=== PATIENT | female | born 1970 | race Two or more races ===

== ENCOUNTER 2017-05-30 17:49 | Emergency (ER) | payer MEDICAID ==
[~2017-05-30] VITALS: Ht 167.6 cm; Wt 70.3 kg
[2017-05-30] MEDS ORDERED: SIMVASTATIN20 MG ORAL (17:57)
[2017-05-30] MEDS ORDERED: VITAMIN D250000 UNI1 ORAL (17:57)
[2017-05-30] MEDS ORDERED: JANUVIA25 MG ORAL (17:57)
[2017-05-30] MEDS ORDERED: METFORMIN HCL500 M1 ORAL (17:57)
[2017-05-30] MEDS ORDERED: LORAZEPAM0.5 MG ORAL (17:57)
--- NOTE | 2017-05-30 17:58 | Emergency Room Report ---
History of Present Illness General Chief Complaint: Headache Source: Patient Present Illness HPI 46 yo female presents to ER complaining of BUENROSTRO intermittently for the past month. Patient denies vision changes or vision loss. Denies vomiting. Patient also complains of bilateral hand and feet numbness. Reports chronic ailment, reports has not received treatment or referral from primary care provider, reports instructed to report to ER for symptoms. Reports able to ambulate without difficulty. Denies hx of injury. Patient reports hx of DM. Reports taking medication for DM. Denies fever, chest pain, SOB, abdominal pain. Denies dysuria, hematuria. Allergies: Coded Allergies: No Known Allergies (Unverified , 05/30/17) Patient History Past Medical History: see triage record Reviewed Nursing Documentation: PMH: Agreed; PSxH: Agreed Nursing Documentation-PMH Past Medical History: No History, Except For Hx Diabetes: Yes Review of Systems All Other Systems: negative except mentioned in HPI Physical Exam Vital Signs Date Time Temp Pulse Resp B/P (MAP) Pulse Ox O2 Delivery O2 Flow Rate FiO2 05/30/17 17:52 98.3 87 20 111/77 99 Room Air 98.2 Sp02 EP Interpretation: reviewed, normal General Appearance: well appearing, no apparent distress, alert, GCS 15, non- toxic Head: normocephalic, atraumatic Eyes: bilateral eye normal inspection, bilateral eye PERRL, bilateral eye EOMI ENT: hearing grossly normal, normal pharynx, no angioedema, normal voice, uvula midline, moist mucus membranes Neck: full range of motion Respiratory: lungs clear, normal breath sounds, no rhonchi, no respiratory distress, no accessory muscle use, no wheezing, speaking full sentences Cardiovascular #2: 2+ radial (R), 2+ radial (L), 2+ dorsalis pedis (R), 2+ dorsalis pedis (L) Gastrointestinal: non tender, soft, no mass, non-distended, no guarding, no rebound Musculoskeletal: back normal, digits/nails normal, gait/station normal, normal range of motion, non-tender, no calf tenderness, other - NVI Neurologic: alert, oriented x3, responsive, basket turner III-XII nml as tested, motor strength/tone normal, sensory intact, cerebellar normal, normal gait, speech normal, other - negative Kernig, negative Brudzinski Psychiatric: mood/affect normal Skin: no rash Lymphatic: no adenopathy Medical Decision Making PA Attestation Dr. Rey is my supervising Physician whom patient management has been discussed with. Diagnostic Impression: Primary Impression: Headache Additional Impression: Numbness and tingling ER Course Pt presents to ED c/o headache. DDX considered but are not limited to migraine, cluster BUENROSTRO, tension BUENROSTRO, ICH, UTI. Patient reports not had BUENROSTRO like this in the past. Will order head CT due to age of onset of new HAs. VITAL SIGNS are WNL, patient is afebrile Order CT head, UA and pain medication. ER COURSE Excedrin Migraine provided for BUENROSTRO. UA negative for nitrites, leukocyte esterase, low suspicion for UTI. CT head shows no acute disease Numbness in hands and feet likely secondary to hx of diabetes, possible Peripheral neuropathy. Will provide Gabapentin for neuropathic pain. Instructed patient to take DM medications as instructed. Eat DM friendly diet. Followup with DM specialist. Followup with primary care provider to discuss referral and treatment at that time. Patient reports pain improved. Patient is AOx3, neurologically intact, nontoxic appearing, and ambulatory. DISCHARGE: -Rx provided Excedrin -Rx provided for Gabapentin At this time pt is stable for d/c to home. Patient is resting comfortably, in no acute distress, nontoxic appearing, talking, laughing, and smiling. Will provide with patient care instructions and any necessary prescriptions. Patient to take medication as instructed. Care plan and follow-up instructions provided. Patient questions asked and answered. Patient instructed to follow-up with primary care provider in the next 3 days and discuss further referral with PCP to neurologist. ER precautions given. Patient instructed to return to ER immediately for any new or worsening of symptoms including but not limited to fever, neck stiffness , vision changes, and neurological symptoms. Labs Test 05/30/17 18:00 Urine Color Pale yellow Urine Appearance Clear Urine pH 7 (4.5-8.0) Urine Specific [place] 1.005 (1.005-1.035) Urine Protein Negative (NEGATIVE) Urine Glucose (UA) Negative (NEGATIVE) Urine Ketones Negative (NEGATIVE) Urine Occult Blood Negative (NEGATIVE) Urine Nitrite Negative (NEGATIVE) Urine Bilirubin Negative (NEGATIVE) Urine Urobilinogen Normal MG/DL (0.0-1.0) Urine Leukocyte Esterase Negative (NEGATIVE) CT/MRI/US Diagnostic Results CT/MRI/US Diagnostic Results : Imaging Test Ordered: CT head Impression No evidence of acute intracranial hemorrhage, mass effect or cortical edema. MRI may be obtained for more sensitive evaluation as clinically indicated. Old fracture or postsurgical deformity of the left medial orbital wall with surgical fixation hardware along the left medial orbital wall as above. Correlate with surgical history recommended. Portions of the hardware not totally flush with medial orbital wall. Comparison with prior studies would be helpful to assess for interval change in positioning of hardware. Last Vital Signs Date Time Temp Pulse Resp B/P (MAP) Pulse Ox O2 Delivery O2 Flow Rate FiO2 05/30/17 17:52 98.3 87 20 111/77 99 Room Air 98.2 Disposition: HOME, SELF-CARE Condition: Stable Scripts Gabapentin* (GABAPENTIN*) 100 Mg Capsule 100 MG ORAL THREE TIMES A DAY, #21 CAP Prov: Mati Canales 05/30/17 Aspirin/Acetaminophen/Caffeine (EXCEDRIN MIGRAINE CAPLET) 1 Each Tablet 1 EACH PO TID for 7 Days, #21 TAB Prov: Mati Canales 05/30/17 Patient Instructions: General Headache Without Cause, Peripheral Neuropathy Additional Instructions: Followup with primary care provider in 3 -5 days. Followup with primary care provider for treatment and management of peripheral neuropathy. Take medications as directed. Patient questions asked and answered. ER precautions given, patient instructed to return to ER immediately for any new or worsening of symptoms. Mati Canales May 30, 2017 17:58
[2017-05-30 18:12] LABS: APPEARANCE,URINE CLEAR; BILIRUBIN, URINE NEGATIVE (NEGATIVE); COLOR,URINE PALE YELLOW; GLUCOSE, URINE (UA) NEGATIVE (NEGATIVE); KETONES,URINE NEGATIVE (NEGATIVE); LEUKOCYTE ESTERASE ,URINE NEGATIVE (NEGATIVE); NITRITE,URINE NEGATIVE (NEGATIVE); PH,URINE 7 (4.5-8.0); PROTEIN,URINE NEGATIVE (NEGATIVE); UROBILINOGEN,URINE NORMAL MG/DL (0.0-1.0)
[2017-05-30] MEDS ORDERED: Excedrin Migraine tab ORAL ONE (18:15)
[2017-05-30] MEDS ORDERED: EXCEDRIN MIGRA1 EAC1 PO (18:15)
--- NOTE | 2017-05-30 18:51 | Diagnostic Imaging Report ---
Indication: Pain Technique: Continuous helical CT scanning of the head was performed utilizing automated exposure control without intravenous contrast material. Axial and coronal reconstructions were obtained. Comparison: None CT dose: Total DLP 1358.49 mGycm; CTDI vol 70.38 mGy Findings: There is no acute intracranial hemorrhage, mass effect or cortical edema. The ventricles, cisterns and sulci are normal for age.Visualized mastoid air cells and paranasal sinuses are unremarkable. There is no evidence of acute fracture. There is chronic fracture or postoperative deformity of the left medial orbital wall. Surgical material is noted in the region of the left medial orbital wall. Portions of this surgical material seem to be within the intraconal fat of the left orbit, not flush with the medial orbital wall. Correlation with surgical history recommended. IMPRESSION: No evidence of acute intracranial hemorrhage, mass effect or cortical edema. MRI may be obtained for more sensitive evaluation as clinically indicated. Old fracture or postsurgical deformity of the left medial orbital wall with surgical fixation hardware along the left medial orbital wall as above. Correlate with surgical history recommended. Portions of the hardware not totally flush with medial orbital wall. Comparison with prior studies would be helpful to assess for interval change in positioning of hardware. The CT scanner at [facility] is accredited by the [employer] and the scans are performed using protocols designed to limit radiation exposure to as low as reasonably achievable to attain images of sufficient resolution adequate for diagnostic evaluation.
[2017-05-30 18:55] VITALS: BP 111/77
[2017-05-30] MEDS ORDERED: GABAPENTIN100 MG ORAL (19:02)
[2017-05-30 19:15] VITALS: BP 111/77
== END 2017-05-30 19:15 | disposition home or self-care (01) ==
LOC: EMR 18:20
DX: R51 Headache (principal); R20.0 Anesthesia of skin; E11.9 Type 2 diabetes mellitus without complications
CPT/HCPCS: 70450; 81003; 99284

== ENCOUNTER 2017-08-08 06:35 | Emergency (ER) | payer MEDICAID ==
[~2017-08-08] VITALS: Ht 134.6 cm; Wt 71.2 kg
[~2017-08-08 06:35] MED LIST: EXCEDRIN MIGRA1 EAC1 PO; GABAPENTIN100 MG ORAL; JANUVIA25 MG ORAL; LORAZEPAM0.5 MG ORAL; METFORMIN HCL500 M1 ORAL; SIMVASTATIN20 MG ORAL; VITAMIN D250000 UNI1 ORAL
[2017-08-08] MEDS ORDERED: DOCUSATE SODIU100 MG ORAL (07:04)
[2017-08-08 07:12] VITALS: BP 108/72
[2017-08-08] MEDS ORDERED: Sodium Chloride 500ML 500 ML IV ONE (07:20)
[2017-08-08 07:55] LABS: HEMATOCRIT 43.5 % (37.0-47.0); HEMOGLOBIN 14.7 G/DL (12.0-16.0); MEAN CORPUSCULAR VOLUME 91 FL (80-99); PLATELET COUNT 270 K/UL (150-450); RED BLOOD COUNT 4.79 M/UL (4.20-5.40); RED CELL DISTRIBUTION WIDTH 11.6 % (11.6-14.8); WHITE BLOOD COUNT 16.9 K/UL (4.8-10.8)
[2017-08-08 08:10] LABS: APPEARANCE,URINE SLIGHTLY CLOUDY; BILIRUBIN, URINE NEGATIVE (NEGATIVE); COLOR,URINE PALE YELLOW; GLUCOSE, URINE (UA) 4+ (NEGATIVE); KETONES,URINE NEGATIVE (NEGATIVE); LEUKOCYTE ESTERASE ,URINE NEGATIVE (NEGATIVE); NITRITE,URINE NEGATIVE (NEGATIVE); PH,URINE 6 (4.5-8.0); PROTEIN,URINE NEGATIVE (NEGATIVE); UROBILINOGEN,URINE NORMAL MG/DL (0.0-1.0)
[2017-08-08 08:12] LABS: ANION GAP 12 mmol/L (5-15); BLOOD UREA NITROGEN 10 mg/dL (7-18); CALCIUM 8.9 MG/DL (8.5-10.1); CARBON DIOXIDE 21 MMOL/L (21-32); CHLORIDE 100 MMOL/L (98-107); CREATININE 0.7 MG/DL (0.55-1.30); POTASSIUM 4.3 MMOL/L (3.5-5.1); SODIUM 133 MMOL/L (136-145)
[2017-08-08 08:17] LABS: ALANINE AMINOTRANSFERASE 18 U/L (12-78); ALBUMIN 3.8 G/DL (3.4-5.0); ALBUMIN/GLOBULIN RATIO 0.8 (1.0-2.7); ALKALINE PHOSPHATASE 150 U/L (46-116); ASPARTATE AMINO TRANSFERASE 24 U/L (15-37); BILIRUBIN,TOTAL 0.6 MG/DL (0.2-1.0)
[2017-08-08] MEDS ORDERED: Isovue-300 100ml vial INJ PRN (08:45)
--- NOTE | 2017-08-08 09:34 | Diagnostic Imaging Report ---
Clinical Indication: Abdominal pain Technique: No oral contrast utilized, per emergency room physician request IV administration nonionic contrast. Venous phase spiral acquisition obtained through the abdomen and pelvis. Multiplanar reconstructions were generated. Total dose length product 828.87 mGycm. CTDIvol(s) 15.03 mGy. Dose reduction achieved using automated exposure control Comparison: none Findings: Lack of enteric contrast limits assessment of the GI tract. The appendix is normal. The ascending colon is fluid-filled, and there is equivocal minimal wall thickening. The remainder of the colon is unremarkable. There is suggestion of wall thickening of the terminal ileum. There is a round rim-enhancing area of fluid between the terminal ileum and the right ovary. Most likely represents a partially collapsed follicle but could represent a terminal ileal diverticulum. No small bowel distention. No free or loculated intraperitoneal air or fluid is evident. There is a tiny fat-containing umbilical hernia. The included lung bases demonstrate some atelectasis in the left lingula. The bones are unremarkable. Liver, gallbladder, bile ducts, pancreas, spleen, adrenals, kidneys are all unremarkable. No retroperitoneal or mesenteric mass or adenopathy. The uterus is enlarged, demonstrates heterogeneous attenuation. Endoluminal tubal ligation devices are noted. The bladder is somewhat distended. No pelvic mass or adenopathy demonstrated. Impression: Limited assessment of the GI tract due to lack of enteric contrast administration. Suggestion of wall thickening of the distal and terminal ileum, more questionable wall thickening of the ascending colon as well as fluid within the ascending colon. Findings may represent enteritis/colitis. Correlate with clinical findings No other acute abnormality Round rim-enhancing area of fluid between the right ovary and the terminal ileum, most likely a partially collapsed ovarian follicle but could represent an ileal diverticulum. Enlarged uterus without discrete masses, could represent a diffuse fibroid uterus. Evidence of prior endoluminal fallopian tubal occlusion Distended bladder Other findings as noted, including minimal lingular atelectasis, tiny fat-containing umbilical hernia The CT scanner at [facility] is accredited by the [employer] and the scans are performed using protocols designed to limit radiation exposure to as low as reasonably achievable to attain images of sufficient resolution adequate for diagnostic evaluation.
[2017-08-08 09:47] VITALS: BP 110/74
[2017-08-08] MEDS ORDERED: RANITIDINE HCL150 MG ORAL (09:48)
[2017-08-08] MEDS ORDERED: COLACE100 MG ORAL (09:48)
[2017-08-08] MEDS ORDERED: DICYCLOMINE HCL10 MG PO (09:48)
[2017-08-08] MEDS ORDERED: CIPROFLOXACIN500 M2 ORAL (09:48)
--- NOTE | 2017-08-08 10:13 | Emergency Room Report ---
History of Present Illness General Chief Complaint: Abdominal Pain Source: Patient Present Illness HPI 46-year-old female presents ED complaining of abdominal pain. Started around 1 AM. Sudden onset. Burning, epigastric, 8 out of 10. Radiating to lower abdomen. Denies fevers or chills. Denies nausea or vomiting. Denies diarrhea. Denies chest pain or shortness of breath. No other aggravating relieving factors. Denies any other associated symptoms Allergies: Coded Allergies: No Known Allergies (Unverified , 05/30/17) Patient History Past Medical History: COPD Past Surgical History: none Pertinent Family History: none Social History: Denies: smoking, alcohol use, drug use Last Menstrual Period: 07/25/17 Now: No Immunizations: UTD Reviewed Nursing Documentation: PMH: Agreed; PSxH: Agreed Nursing Documentation-PMH Past Medical History: No History, Except For Hx Cardiac Problems: No - High Cholesterol Hx Diabetes: Yes Review of Systems All Other Systems: negative except mentioned in HPI Physical Exam Vital Signs Date Time Temp Pulse Resp B/P (MAP) Pulse Ox O2 Delivery O2 Flow Rate FiO2 08/08/17 06:58 98.5 108 16 108/72 97 Room Air 98.4 Sp02 EP Interpretation: reviewed, normal General Appearance: no apparent distress, alert, GCS 15, non-toxic Head: normocephalic, atraumatic Eyes: bilateral eye normal inspection, bilateral eye PERRL ENT: hearing grossly normal, normal pharynx, no angioedema, normal voice Neck: full range of motion, supple/symm/no masses Respiratory: chest non-tender, lungs clear, normal breath sounds, speaking full sentences Cardiovascular #1: regular rate, rhythm, no edema Cardiovascular #2: 2+ carotid (R), 2+ carotid (L), 2+ radial (R), 2+ radial (L) , 2+ dorsalis pedis (R), 2+ dorsalis pedis (L) Gastrointestinal: normal bowel sounds, soft, non-distended, no guarding, no rebound, tenderness - epigastric, lower abdomen Rectal: deferred Genitourinary: normal inspection, no CVA tenderness Musculoskeletal: back normal, gait/station normal, normal range of motion, non- tender Neurologic: alert, oriented x3, responsive, motor strength/tone normal, sensory intact, speech normal Psychiatric: judgement/insight normal, memory normal, mood/affect normal, no suicidal/homicidal ideation Reflexes: 3+ bicep (R), 3+ bicep (L), 3+ tricep (R), 3+ tricep (L), 3+ knee (R) , 3+ knee (L) Skin: normal color, no rash, warm/dry, well hydrated Lymphatic: no adenopathy Medical Decision Making Diagnostic Impression: Primary Impression: Colitis ER Course Hospital Course 46-year-old F presents to ED with abdominal pain Differential diagnosis includes-appendicitis, cholecystitis, small bowel obstruction, gastritis, Clinical course Patient placed on stretcher. After initial history and physical I ordered labs , IV fluids, pain medications and CT scan Labs - noted leukocytosis, electrolytes ok, LFTs normal, UA negative CT scan shows no e/o appendicitis. evidence of colitis in terminal ileum/ ascending colon Discussed findings with patient. We'll discharge on antibiotics. Close follow- up with PMD I feel this is a highly complex case requiring extensive working including EKG/ Rhythm strip, Xray/CT/US, Blood/urine lab work, repeat exams while in ED, and administration of strong opiates/narcotics for pain control, admission to hospital or close patient follow up. Diagnosis - colitis Stable and discharged to home with Rx Cipro, Bentyl, Colace, Zantac. Followup with PMD. Return to ED if symptoms recur or worsen Labs Test 08/08/17 07:20 White Blood Count 16.9 K/UL (4.8-10.8) Red Blood Count 4.79 M/UL (4.20-5.40) Hemoglobin 14.7 G/DL (12.0-16.0) Hematocrit 43.5 % (37.0-47.0) Mean Corpuscular Volume 91 FL (80-99) Mean Corpuscular Hemoglobin 30.7 PG (27.0-31.0) Mean Corpuscular Hemoglobin Concent 33.7 G/DL (32.0-36.0) Red Cell Distribution Width 11.6 % (11.6-14.8) Platelet Count 270 K/UL (150-450) Mean Platelet Volume 8.2 FL (6.5-10.1) Neutrophils (%) (Auto) % (45.0-75.0) Lymphocytes (%) (Auto) % (20.0-45.0) Monocytes (%) (Auto) % (1.0-10.0) Eosinophils (%) (Auto) % (0.0-3.0) Basophils (%) (Auto) % (0.0-2.0) Differential Total Cells Counted 100 Neutrophils % (Manual) 85 % (45-75) Lymphocytes % (Manual) 9 % (20-45) Monocytes % (Manual) 5 % (1-10) Eosinophils % (Manual) 0 % (0-3) Basophils % (Manual) 0 % (0-2) Band Neutrophils 1 % (0-8) Platelet Estimate Adequate Platelet Morphology Normal Red Blood Cell Morphology Normal Urine Color Pale yellow Urine Appearance Slightly cloudy Urine pH 6 (4.5-8.0) Urine Specific [place] 1.010 (1.005-1.035) Urine Protein Negative (NEGATIVE) Urine Glucose (UA) 4+ (NEGATIVE) Urine Ketones Negative (NEGATIVE) Urine Occult Blood 1+ (NEGATIVE) Urine Nitrite Negative (NEGATIVE) Urine Bilirubin Negative (NEGATIVE) Urine Urobilinogen Normal MG/DL (0.0-1.0) Urine Leukocyte Esterase Negative (NEGATIVE) Urine RBC 2-4 /HPF (0 - 2) Urine WBC 2-4 /HPF (0 - 2) Urine Squamous Epithelial Cells Moderate /LPF (NONE/OCC) Urine Bacteria Few /HPF (NONE) Urine HCG, Qualitative Negative (NEGATIVE) Sodium Level 133 MMOL/L (136-145) Potassium Level 4.3 MMOL/L (3.5-5.1) Chloride Level 100 MMOL/L (98-107) Carbon Dioxide Level 21 MMOL/L (21-32) Anion Gap 12 mmol/L (5-15) Blood Urea Nitrogen 10 mg/dL (7-18) Creatinine 0.7 MG/DL (0.55-1.30) Estimat Glomerular Filtration Rate > 60 mL/min (>60) Glucose Level 248 MG/DL (74-106) Calcium Level 8.9 MG/DL (8.5-10.1) Total Bilirubin 0.6 MG/DL (0.2-1.0) Aspartate Amino Transf (AST/SGOT) 24 U/L (15-37) Alanine Aminotransferase (ALT/SGPT) 18 U/L (12-78) Alkaline Phosphatase 150 U/L (46-116) Total Protein 8.3 G/DL (6.4-8.2) Albumin 3.8 G/DL (3.4-5.0) Globulin 4.5 g/dL Albumin/Globulin Ratio 0.8 (1.0-2.7) Lipase 114 U/L (73-393) CT/MRI/US Diagnostic Results CT/MRI/US Diagnostic Results : Imaging Test Ordered: CT A/P Impression thickening of distal/terminal ileum. ascending colon. colitis vs enteritis Last Vital Signs Date Time Temp Pulse Resp B/P (MAP) Pulse Ox O2 Delivery O2 Flow Rate FiO2 08/08/17 09:47 98.0 96 16 110/74 97 Room Air 98.4 Status: improved Disposition: HOME, SELF-CARE Condition: Stable Scripts Docusate Sodium* (COLACE*) 100 Mg Capsule 100 MG ORAL THREE TIMES A DAY, #30 CAP Prov: Lucius Rey MD 08/08/17 Ranitidine Hcl* (ZANTAC*) 150 Mg Tablet 150 MG ORAL TWICE A DAY, #30 TAB Prov: Lucius Rey MD 08/08/17 Dicyclomine Hcl* (DICYCLOMINE HCL*) 10 Mg Capsule 10 MG PO QID, #20 CAP Prov: Lucius Rey MD 08/08/17 Ciprofloxacin Hcl* (CIPROFLOXACIN HCL*) 500 Mg Tablet 500 MG ORAL Q12H, #14 TAB 0 Refills Prov: Lucius Rey MD 08/08/17 Patient Instructions: Colitis Lucius Rey MD Aug 08, 2017 10:12
== END 2017-08-08 10:03 | disposition home or self-care (01) ==
LOC: EMR 07:30
DX: K52.9 Noninfective gastroenteritis and colitis, unspecified (principal); E11.9 Type 2 diabetes mellitus without complications; J44.9 Chronic obstructive pulmonary disease, unspecified; K42.9 Umbilical hernia without obstruction or gangrene
CPT/HCPCS: 36415; 74177; 80053; 81003; 81025; 83690; 85007; 85025; 96374; 96375; 99284; J2405; J7040; Q9967; S0028; 96360

== ENCOUNTER 2017-11-18 07:55 | Emergency (ER) | payer MEDICAID ==
[~2017-11-18] VITALS: Ht 144.8 cm; Wt 68.0 kg
[~2017-11-18 07:55] MED LIST changes: +CIPROFLOXACIN500 M2 ORAL; +COLACE100 MG ORAL; +DICYCLOMINE HCL10 MG PO; +DOCUSATE SODIU100 MG ORAL; +RANITIDINE HCL150 MG ORAL
[2017-11-18] MEDS ORDERED: METRONIDAZOLE500 MG ORAL (08:04)
[2017-11-18 08:08] VITALS: BP 116/70
--- NOTE | 2017-11-18 08:24 | Emergency Room Report ---
History of Present Illness General Chief Complaint: Flu Like Symptoms Source: Patient Present Illness HPI 47-year-old female history of diabetes presents with cough productive of yellowish sputum, bilateral ear pain, sore throat for the past 5 days. She reports she recently was diagnosed with a pelvic and is taking an antibiotic, Flagyl, for that. She reports no pelvic pain, no abnormal vaginal discharge, no dysuria. She denies any chest pain, abdominal pain, fever, vomiting, any other symptoms at all. She has been trying the antibiotic as well as Advil with only partial relief. Allergies: Coded Allergies: No Known Allergies (Unverified , 05/30/17) Patient History Past Medical History: see triage record Last Menstrual Period: 11/08/2017 Reviewed Nursing Documentation: PMH: Agreed; PSxH: Agreed Nursing Documentation-PMH Past Medical History: No History, Except For Hx Diabetes: Yes Review of Systems All Other Systems: negative except mentioned in HPI Physical Exam Vital Signs Date Time Temp Pulse Resp B/P (MAP) Pulse Ox O2 Delivery O2 Flow Rate FiO2 11/18/17 07:58 98.4 95 14 115/75 96 Room Air 98.4 Sp02 EP Interpretation: reviewed, normal General Appearance: no apparent distress, alert, non-toxic Head: normocephalic Eyes: bilateral eye normal inspection, bilateral eye PERRL, bilateral eye EOMI ENT: normal ENT inspection, hearing grossly normal, normal pharynx, no angioedema, normal voice, moist mucus membranes Neck: normal inspection, full range of motion, supple, supple/symm/no masses Respiratory: chest non-tender, lungs clear, normal breath sounds, chest symmetrical, palpation of chest normal Cardiovascular #1: normal peripheral pulses, regular rate, rhythm Cardiovascular #2: 2+ radial (R), 2+ radial (L) Gastrointestinal: normal inspection, non tender, soft, no mass, no guarding, no rebound Rectal: deferred Genitourinary: normal inspection, no CVA tenderness Musculoskeletal: back normal, gait/station normal, normal range of motion, non- tender, no calf tenderness Neurologic: alert, responsive, want ad supervisor III-XII nml as tested, motor strength/tone normal, sensory intact, speech normal Psychiatric: judgement/insight normal, memory normal, mood/affect normal Skin: normal color, no rash, warm/dry, normal turgor Lymphatic: no adenopathy Medical Decision Making Diagnostic Impression: Primary Impression: Influenza-like symptoms ER Course Patient very well-appearing, has rhinorrhea and upper respiratory infectious symptoms, normal posterior oropharyngeal examination, as well as normal ear examination, chest x-ray unremarkable, will discharge with reassurance. We'll give prescriptions for intranasal steroids and Robitussin. Chest X-Ray Diagnostic Results Chest X-Ray Diagnostic Results : Chest X-Ray Ordered: Yes # of Views/Limited/Complete: 2 View Indication: Other - Cough EP Interpretation: Yes Interpretation: no consolidation, no effusion, no pneumothorax, no acute cardiopulmonary disease Impression: No acute disease Electronically Signed by: Byron Solares MD Last Vital Signs Date Time Temp Pulse Resp B/P (MAP) Pulse Ox O2 Delivery O2 Flow Rate FiO2 11/18/17 08:08 98.5 91 14 116/70 97 Room Air 98.5 Disposition: HOME, SELF-CARE Condition: Stable Scripts Guaifenesin/Dextromethorphan (Robitussin [id number] Dm) 1 Each Capsule 1 EACH PO BID for 7 Days, #14 CAP Prov: BYRON SOLARES M.D 11/18/17 Mometasone Furoate (NASONEX) 17 [address] [place].pump 2 SPRAYS NASAL DAILY for 7 Days, GM 0 Refills Prov: BYRON SOLARES M.D 11/18/17 BYRON SOLARES M.D Nov 18, 2017 08:23
[2017-11-18] MEDS ORDERED: NASONEX17 GM NASAL (08:28)
[2017-11-18] MEDS ORDERED: ROBITUSSIN COU1 EACH PO (08:29)
[2017-11-18 09:02] VITALS: BP 116/70
--- NOTE | 2017-11-18 10:23 | Diagnostic Imaging Report ---
Indication: Cough Comparison: None 2 views of the chest obtained. Findings: Cardiomediastinal silhouette and pulmonary vascularity are within normal limits for age. The diaphragmatic contour is smooth and costophrenic angles are sharp. No pleural effusions are identified. The bones are unremarkable. Impression: No acute disease
== END 2017-11-18 09:02 | disposition home or self-care (01) ==
LOC: EMR 08:22
DX: J11.1 Influenza due to unidentified influenza virus with other respiratory manifestations (principal); E11.9 Type 2 diabetes mellitus without complications
CPT/HCPCS: 71046; 99283

== ENCOUNTER 2018-01-15 12:33 | Emergency (ER) | payer MEDICAID ==
[~2018-01-15] VITALS: Ht 152.4 cm; Wt 64.4 kg
[~2018-01-15 12:33] MED LIST changes: +METRONIDAZOLE500 MG ORAL; +NASONEX17 GM NASAL; +ROBITUSSIN COU1 EACH PO
[2018-01-15 12:45] VITALS: BP 115/76
[2018-01-15] MEDS ORDERED: MAGNESIUM CITR296 M1 PO (13:26)
[2018-01-15] MEDS ORDERED: TYLENOL EXTRA500 MG ORAL (13:26)
--- NOTE | 2018-01-15 13:27 | Emergency Room Report ---
History of Present Illness General Chief Complaint: Constipation Source: Patient, Medical Record Present Illness HPI 47-year-old female patient presents the ER complaining constipation for the past 5 days. Reports a small amount of "white poop comes out" go to the bathroom. Denies diarrhea. Reports mild epigastric discomfort during this time. Denies fever, chest pain, shortness of breath. Reports history of diabetes. Reports when she strains to go to the bathroom she feels her heart beat faster. Denies history of heart disease. Allergies: Coded Allergies: No Known Allergies (Unverified , 01/15/18) Patient History Past Medical History: see triage record Reviewed Nursing Documentation: PMH: Agreed; PSxH: Agreed Nursing Documentation-PMH Hx Diabetes: Yes Review of Systems All Other Systems: negative except mentioned in HPI Physical Exam Vital Signs Date Time Temp Pulse Resp B/P (MAP) Pulse Ox O2 Delivery O2 Flow Rate FiO2 01/15/18 12:45 98.4 77 17 115/76 96 Room Air Sp02 EP Interpretation: reviewed, normal General Appearance: well appearing, no apparent distress, alert, GCS 15, non- toxic Head: normocephalic, atraumatic Eyes: bilateral eye normal inspection, bilateral eye PERRL ENT: hearing grossly normal, normal pharynx, no angioedema, normal voice, uvula midline, moist mucus membranes Neck: full range of motion Respiratory: lungs clear, normal breath sounds, no rhonchi, no respiratory distress, no accessory muscle use, no wheezing, speaking full sentences Cardiovascular #1: regular rate, rhythm, no edema Gastrointestinal: normal bowel sounds, non tender, soft, no mass, non-distended , no guarding, no pulsatile mass, no rebound, other - Negative Rovsing, negative obturator, negative Lazaro Genitourinary: no CVA tenderness Musculoskeletal: back normal, digits/nails normal, gait/station normal, normal range of motion, non-tender Neurologic: alert, oriented x3, responsive, motor strength/tone normal, sensory intact Skin: no rash Medical Decision Making PA Attestation Dr. Torres is my supervising Physician whom patient management has been discussed with. Diagnostic Impression: Primary Impression: Constipation ER Course Pt presents to ED c/o generalized abdominal pain. DDX considered but are not limited to cystitis, pyelonephritis, constipation, SBO. Low suspicion for appendicitis, no TTP at McBurney's point, negative Rovsing sign. VITAL SIGNS are WNL, patient is afebrile. ER COURSE Physical exam benign. Abdominal tenderness to palpation, negative Rovsing, negative Lazaro, does not require imaging of the abdomen at this time. She is resting comfortably, not writhing in pain, nontoxic-appearing, no abdominal tenderness palpation, no diarrhea, low suspicion for SBO. Drink plenty of fluids. High Fiber diet. ER precautions given. Return to the ER immediately if pain symptoms worsen. DISCHARGE: -Rx provided for Mg citrate Will provide with patient care instructions and any necessary prescriptions. Patient understands and agrees to treatment plan. Patient encouraged to drink plenty of fluids. Patient to take medication as instructed. Care plan and follow-up instructions provided. Patient questions asked and answered. Patient instructed to follow-up with test analyst in 3 - 5 days. ER precautions given. Patient instructed to return to ER immediately for any new or worsening of symptoms. Including but not limited to fever, worsening pain , intractable vomiting. - Please note that this Emergency Department Report was dictated using [employer] grader technology software, occasionally this can lead to erroneous entry secondary to interpretation by the dictation equipment. Last Vital Signs Date Time Temp Pulse Resp B/P (MAP) Pulse Ox O2 Delivery O2 Flow Rate FiO2 01/15/18 12:45 98.4 77 17 115/76 96 Room Air Disposition: HOME, SELF-CARE Condition: Stable Scripts Acetaminophen* (TYLENOL EXTRA STRENGTH*) 500 Mg Tablet 500 MG ORAL Q8H PRN for Prn Headache/Temp > 101, #30 TAB 0 Refills Prov: Mati Canales 01/15/18 Magnesium Citrate (MAGNESIUM CITRATE) 296 Ml Solution 296 ML PO DAILY, #296 ML Prov: Mati Canales 01/15/18 Patient Instructions: Constipation, Adult Additional Instructions: Followup with primary care provider in 3 -5 days. Drink plenty of fluids. High Fiber diet. Take medications as directed. Patient questions asked and answered. ER precautions given, patient instructed to return to ER immediately for any new or worsening of symptoms. Mati Canales Jan 15, 2018 13:27
[2018-01-15 13:41] VITALS: BP 122/85
== END 2018-01-15 13:41 | disposition home or self-care (01) ==
LOC: EMR 13:20
DX: K59.00 Constipation, unspecified (principal); E11.9 Type 2 diabetes mellitus without complications; E78.00 Pure hypercholesterolemia, unspecified
CPT/HCPCS: 99282

== ENCOUNTER 2018-07-11 15:00 | Emergency (ER) | payer MEDICAID ==
[~2018-07-11] VITALS: Ht 162.6 cm; Wt 66.7 kg
[~2018-07-11 15:00] MED LIST changes: +MAGNESIUM CITR296 M1 PO; +TYLENOL EXTRA500 MG ORAL
[2018-07-11 15:20] VITALS: BP 116/75
--- NOTE | 2018-07-11 16:02 | NUR ---
ED Nurse Note: pt back from imaging.
--- NOTE | 2018-07-11 17:00 | NUR ---
ED Nurse Note: pao re-eval done pt given copy of rad report aci and script pt verbalized understanding ambulated out with steady gait at side.
--- NOTE | 2018-07-11 17:05 | Emergency Room Report ---
History of Present Illness General Chief Complaint: Pain Source: Patient Present Illness HPI 47-year-old female with no significant past medical history here complaining of increased pain in the left side of face after her visit to the dentist few days ago. According to the patient's family member the dentist did not find any abnormality however did start her on amoxicillin twice a day for 10 days. Has been taking Tylenol for pain and swelling with minimal relief not complaining of increased swelling the left side of face radiating to the left forehead and the left posterior head. denies Tingling, numbness, dizziness, pus drainage from the mouth. Chills, chest pain, S OB, palpitation, and all other associated symptoms. The pain 3 out of 10 with radiation Allergies: Coded Allergies: No Known Allergies (Unverified , 01/15/18) Patient History Past Medical History: see triage record Past Surgical History: unable to obtain Pertinent Family History: none Now: No Immunizations: UTD Reviewed Nursing Documentation: PMH: Agreed; PSxH: Agreed Nursing Documentation-PMH Past Medical History: No History, Except For Hx Cardiac Problems: Yes - high cholesterol Hx Diabetes: Yes Review of Systems All Other Systems: negative except mentioned in HPI Physical Exam Vital Signs Date Time Temp Pulse Resp B/P (MAP) Pulse Ox O2 Delivery O2 Flow Rate FiO2 07/11/18 15:07 98.2 84 18 116/75 (89) 99 Room Air Sp02 EP Interpretation: reviewed, normal General Appearance: normal inspection, well appearing, no apparent distress Head: normocephalic, atraumatic Eyes: bilateral eye normal inspection, bilateral eye PERRL ENT: hearing grossly normal, normal pharynx, no angioedema, normal voice, other - Left maxilla and mandible swelling Neck: normal inspection, full range of motion, supple Respiratory: normal inspection, chest non-tender, lungs clear, normal breath sounds, no rhonchi, no respiratory distress Cardiovascular #1: normal inspection, normal peripheral pulses, no edema, no murmur Gastrointestinal: normal inspection, soft, no bruit, no guarding Rectal: deferred Genitourinary: no CVA tenderness Musculoskeletal: normal inspection, back normal, digits/nails normal, gait/ station normal Neurologic: normal inspection, alert, oriented x3, responsive, supervisor belt and link assembly III-XII nml as tested Psychiatric: normal inspection, judgement/insight normal Skin: normal inspection, normal color, no rash Lymphatic: normal inspection, no adenopathy Medical Decision Making PA Attestation All my diagnosis and treatment plans were reviewed ad discussed with my supervising physician Dr. Maza Diagnostic Impression: Primary Impression: Tooth infection ER Course 47-year-old female with no significant past medical history here complaining of increased pain in the left side of face after her visit to the dentist few days ago. According to the patient's family member the dentist did not find any abnormality however did start her on amoxicillin twice a day for 10 days. Has been taking Tylenol for pain and swelling with minimal relief not complaining of increased swelling the left side of face radiating to the left forehead and the left posterior head. denies Tingling, numbness, dizziness, pus drainage from the mouth. Chills, chest pain, S OB, palpitation, and all other associated symptoms. The pain 3 out of 10 with radiation Ddx considered but are not limited to: dental abscess, dental infection, sinus abscess Vital signs: are WNL, pt. is afebrile H&PE are most consistent with: dental infection ORDERS: facial CT no contrast, naproxen ED INTERVENTIONS: None required at this time. DISCHARGE: At this time pt. is stable for d/c to home. Will provide printed patient care instructions, and any necessary prescriptions. Care plan and follow up instructions have been discussed with the patient prior to discharge. take antibiotics take pain medication as directed follow-up with your dentist CT/MRI/US Diagnostic Results CT/MRI/US Diagnostic Results : Imaging Test Ordered: facial CT no cotrast Impression FINDINGS: Bones/joints: Old left medial orbital wall fracture and evidence of fixation as reported previously. Soft tissues: Unremarkable. Orbits: The globes are normal in morphology. Sinuses: Minimal mucosal thickening-debris in the left maxillary sinus and opacification of a small left ethmoid air cell. IMPRESSION: Minimal mucosal thickening-debris in the left maxillary sinus and opacification of a small left ethmoid air cell. Last Vital Signs Date Time Temp Pulse Resp B/P (MAP) Pulse Ox O2 Delivery O2 Flow Rate FiO2 07/11/18 15:20 98.2 84 18 116/75 99 Room Air Disposition: HOME, SELF-CARE Condition: Stable Scripts Naproxen* (NAPROXEN*) 500 Mg Tablet 500 MG ORAL TWICE A DAY, #30 TAB Prov: Lyndsey Griffiths 07/11/18 Patient Instructions: Dental Pain, [id number] Additional Instructions: follow Up with your dentist for further work-up finish your antibiotics Lyndsey Griffiths Jul 11, 2018 17:05
[2018-07-11] MEDS ORDERED: NAPROXEN500 M2 ORAL (17:06)
--- NOTE | 2018-07-11 17:18 | Diagnostic Imaging Report ---
EXAM: CT Maxillofacial Without Intravenous Contrast CLINICAL HISTORY: PAIN TECHNIQUE: Axial computed tomography images of the face without intravenous contrast. CTDI is 28.19 mGy and DLP is 55 3 mGy-cm. One or more of the following dose reduction techniques were used: automated exposure control, adjustment of the mA and/or kV according to patient size, use of iterative reconstruction technique. COMPARISON: No relevant prior studies available. FINDINGS: Bones/joints: Old left medial orbital wall fracture and evidence of fixation as reported previously. Soft tissues: Unremarkable. Orbits: The globes are normal in morphology. Sinuses: Minimal mucosal thickening-debris in the left maxillary sinus and opacification of a small left ethmoid air cell. IMPRESSION: Minimal mucosal thickening-debris in the left maxillary sinus and opacification of a small left ethmoid air cell.
[2018-07-11 17:20] VITALS: BP 118/75
== END 2018-07-11 17:20 | disposition home or self-care (01) ==
LOC: EMR 15:45
DX: K04.7 Periapical abscess without sinus (principal); E11.9 Type 2 diabetes mellitus without complications; E78.00 Pure hypercholesterolemia, unspecified
CPT/HCPCS: 70486; 99284

== ENCOUNTER 2018-11-08 12:23 | Emergency (ER) | payer MEDICAID ==
[~2018-11-08] VITALS: Ht 162.6 cm; Wt 69.4 kg
[~2018-11-08 12:23] MED LIST changes: +NAPROXEN500 M2 ORAL
[2018-11-08 12:51] VITALS: BP 132/86
--- NOTE | 2018-11-08 13:00 | NUR ---
ED Nurse Note: Patient walked into ED c/o right calf pain for 3 days. patient reports when she walks, she feels her muscle pulling. patient reports left wrist pain as well. patient is alert awake x4 ambulatory, breathing unlabored and even, speaking in full sentences.
--- NOTE | 2018-11-08 15:49 | NUR ---
ED Nurse Note: patient waiting comfortably for the result.
--- NOTE | 2018-11-08 15:49 | Emergency Room Report ---
History of Present Illness General Chief Complaint: Pain Source: Patient Present Illness HPI 48-year-old female with no significant past medical history other than diabetes currently controlled with metformin here complaining of pain and cramping in the right lower extremity below the knee x3 days. Patient denies any fall or injury reports that she is usually immobile however reports tightening of the calf and numbness. Denies having history of DVT or PE. Denies chest pain, shortness of breath, palpitation, and tingling. Patient also complains of pain in the left wrist and an nodule is noted in the left ulnar side. 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 Rating the pain and cramping the right lower extremity 10 out of 10 and intermittent. No tightness is noted and patient has good dorsalis pedis pulse. Has not taken medication for pain. Rates the pain in her left wrist 5 out of 10 without radiation denying tingling and numbness. Allergies: Coded Allergies: No Known Allergies (Unverified , 01/15/18) Patient History Past Medical History: see triage record Past Surgical History: unable to obtain Pertinent Family History: none Now: No Immunizations: UTD Reviewed Nursing Documentation: PMH: Agreed; PSxH: Agreed Nursing Documentation-PMH Hx Cardiac Problems: Yes - high cholesterol Hx Diabetes: Yes Review of Systems All Other Systems: negative except mentioned in HPI Physical Exam Vital Signs Date Time Temp Pulse Resp B/P (MAP) Pulse Ox O2 Delivery O2 Flow Rate FiO2 11/08/18 12:51 98.1 75 18 132/86 (101) 98 Room Air Sp02 EP Interpretation: reviewed, normal General Appearance: no apparent distress, alert, GCS 15, non-toxic Head: normocephalic, atraumatic Eyes: bilateral eye normal inspection, bilateral eye PERRL ENT: hearing grossly normal, normal pharynx, no angioedema, normal voice Neck: full range of motion, supple/symm/no masses Respiratory: chest non-tender, lungs clear, normal breath sounds, no rhonchi, no wheezing, speaking full sentences Cardiovascular #1: regular rate, rhythm, no edema, no murmur, normal capillary refill Cardiovascular #2: 2+ dorsalis pedis (R), 2+ dorsalis pedis (L) Gastrointestinal: normal bowel sounds, non tender, soft, non-distended, no guarding, no rebound Genitourinary: normal inspection, no CVA tenderness Musculoskeletal: back normal, gait/station normal, normal range of motion, non- tender, no calf tenderness, other - nodule left wrist on ulnar side Neurologic: alert, oriented x3, responsive, motor strength/tone normal, sensory intact, speech normal Psychiatric: judgement/insight normal, memory normal, mood/affect normal, no suicidal/homicidal ideation Skin: no rash Lymphatic: no adenopathy Medical Decision Making PA Attestation All diagnoses and treatment plans were reviewed and discussed with my supervising physician Dr. Nelson Diagnostic Impression: Primary Impression: Wrist arthritis Additional Impression: Muscle spasms of lower extremity ER Course 48-year-old female with no significant past medical history other than diabetes currently controlled with metformin here complaining of pain and cramping in the right lower extremity below the knee x3 days. Patient denies any fall or injury reports that she is usually immobile however reports tightening of the calf and numbness. Denies having history of DVT or PE. Denies chest pain, shortness of breath, palpitation, and tingling. Patient also complains of pain in the left wrist and an nodule is noted in the left ulnar side. 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 Rating the pain and cramping the right lower extremity 10 out of 10 and intermittent. No tightness is noted and patient has good dorsalis pedis pulse. Has not taken medication for pain. Rates the pain in her left wrist 5 out of 10 without radiation denying tingling and numbness. Ddx considered but are not limited to : Wrist sprain, wrist strain, wrist fracture, osteoarthritis, DVT, right lower extremity strain versus sprain versus fracture Vital signs: are WNL, pt. is afebrile H&PE are most consistent with: Right lower extremity strain, left wrist arthritis ORDERS: Wrist x-ray, duplex venous ultrasound of right lower extremity, ibuprofen, Voltaren gel ED INTERVENTIONS: None DISCHARGE: At this time pt. is stable for d/c to home. Will provide printed patient care instructions, and any necessary prescriptions. Care plan and follow up instructions have been discussed with the patient prior to discharge. Take medication as directed follow-up with your primary care provider avoid strenuous physical activity Other X-Ray Diagnostic Results Other X-Ray Diagnostic Results : X-Ray ordered: wrist Xray # of Views/Limited Vs Complete: 3 View Indication: Pain EP Interpretation: Yes PA Xray: Interpretation reviewed, by supervising MD, and agrees with findings. Interpretation: no dislocation, no soft tissue swelling, no fractures Impression: No acute disease Electronically Signed by: Lyndsey Adams PA-C CT/MRI/US Diagnostic Results CT/MRI/US Diagnostic Results : Imaging Test Ordered: Venous duplex of right lower extremity Impression WNL Last Vital Signs Date Time Temp Pulse Resp B/P (MAP) Pulse Ox O2 Delivery O2 Flow Rate FiO2 11/08/18 12:51 98.1 75 18 132/86 (101) 98 Room Air Disposition: HOME, SELF-CARE Condition: Stable Referrals: [facility],REFERRING (PCP) Patient Instructions: Arthritis, Leg Cramps Additional Instructions: Take medication as directed follow-up with your primary care provider avoid strenuous physical activity Lyndsey Griffiths Nov 08, 2018 15:49
[2018-11-08] MEDS ORDERED: IBUPROFEN600 MG ORAL (15:52)
[2018-11-08] MEDS ORDERED: VOLTAREN100 G1 TP (15:52)
[2018-11-08 15:59] VITALS: BP 132/86
--- NOTE | 2018-11-08 16:00 | NUR ---
ER DISCHARGE NOTE: Patient is cleared to be discharged per PRAVEEN BUTTS, pt is aox4, on room air, with stable vital signs. pt was given dc and prescription instructions, pt was able to verbalize understanding, pt id band removed without complications. pt is able to ambulate with steady gait. pt took all belongings.
--- NOTE | 2018-11-08 16:06 | Diagnostic Imaging Report ---
Indication: Right leg pain Technique: Grayscale and duplex images of the right lower extremity veins Comparison: none Findings: On the right, grayscale and duplex images demonstrate no evidence of intraluminal thrombus. Normal phasic Doppler waveforms, demonstrating normal augmentation response and no evidence of valvular insufficiency. Normal compressibility. Impression: Negative for right lower extremity deep venous thrombosis
--- NOTE | 2018-11-09 12:29 | Diagnostic Imaging Report ---
Clinical Indication:Wrist pain Technique: 3 views of the left wrist Comparison: None Findings: No acute fractures. No dislocations. The joint spaces are preserved Impression: Negative
== END 2018-11-08 15:59 | disposition home or self-care (01) ==
LOC: EMR 13:00
DX: M62.838 Other muscle spasm (principal); M13.832 Other specified arthritis, left wrist; M79.604 Pain in right leg; E11.9 Type 2 diabetes mellitus without complications; E78.00 Pure hypercholesterolemia, unspecified; Z79.84 Long term (current) use of oral hypoglycemic drugs
CPT/HCPCS: 73110; 93971; Z7502; 99284

== ENCOUNTER 2018-12-10 20:13 | Emergency (ER) | payer MEDICAID ==
[~2018-12-10] VITALS: Ht 157.5 cm; Wt 68.5 kg
[~2018-12-10 20:13] MED LIST changes: +IBUPROFEN600 MG ORAL; +VOLTAREN100 G1 TP
--- NOTE | 2018-12-10 20:25 | NUR ---
ED Nurse Note: Patient walked in to ER c/o right upper back pain 07/20. AAO x4, VSS at this time.
[2018-12-10 20:40] VITALS: BP 111/70
[2018-12-10 21:30] LABS: APPEARANCE,URINE CLEAR; BILIRUBIN, URINE NEGATIVE (NEGATIVE); COLOR,URINE PALE YELLOW; GLUCOSE, URINE (UA) NEGATIVE (NEGATIVE); KETONES,URINE 1+ (NEGATIVE); LEUKOCYTE ESTERASE ,URINE NEGATIVE (NEGATIVE); NITRITE,URINE NEGATIVE (NEGATIVE); PH,URINE 5 (4.5-8.0); PROTEIN,URINE NEGATIVE (NEGATIVE); UROBILINOGEN,URINE NORMAL MG/DL (0.0-1.0)
[2018-12-10] MEDS ORDERED: IBUPROFEN600 MG ORAL (21:47)
--- NOTE | 2018-12-10 21:47 | Emergency Room Report ---
History of Present Illness General Chief Complaint: Back Pain-No Injury Source: Patient Present Illness [facility] This is a 48-year-old female with no past medical history. She presents with chief complaint of right upper back pain. Onset for last couple days. Worse with movement. Burning sensation with movement. No cough or congestion. No fever chills. No abdominal pain. No dysuria frequency. Pain is 7 out of 10. Allergies: Coded Allergies: No Known Allergies (Unverified , 01/15/18) Patient History Past Medical History: see triage record, old chart reviewed Past Surgical History: none Pertinent Family History: none Social History: Denies: smoking Last Menstrual Period: 11/24/18 Now: No Immunizations: other Reviewed Nursing Documentation: PMH: Agreed; PSxH: Agreed Nursing Documentation-PMH Hx Cardiac Problems: Yes - high cholesterol Hx Diabetes: Yes Review of Systems Eye: Denies: eye pain, blurred vision ENT: Denies: ear pain, nose congestion, throat swelling Respiratory: Denies: cough, shortness of breath Cardiovascular: Denies: chest pain, palpitations Gastrointestinal: Denies: abdominal pain, diarrhea, nausea, vomiting Musculoskeletal: Reports: back pain; Denies: joint pain Skin: Denies: rash Neurological: Denies: headache, numbness Endocrine: Denies: increased thirst, increased urine Hematologic/Lymphatic: Denies: easy bruising All Other Systems: negative except mentioned in HPI Physical Exam Vital Signs Date Time Temp Pulse Resp B/P (MAP) Pulse Ox O2 Delivery O2 Flow Rate FiO2 12/10/18 20:30 98.6 78 18 111/70 (84) 97 Room Air Vitals normal Sp02 EP Interpretation: reviewed, normal General Appearance: well appearing, no apparent distress, alert Head: normocephalic, atraumatic Eyes: bilateral eye PERRL, bilateral eye EOMI ENT: hearing grossly normal, normal pharynx Neck: full range of motion, supple, no meningismus Respiratory: chest non-tender, lungs clear, normal breath sounds Cardiovascular #1: regular rate, rhythm, no murmur Gastrointestinal: normal bowel sounds, non tender, no mass, no organomegaly, no bruit, non-distended Musculoskeletal: back normal - This with palpation and movement of right thoracic back area. No rash., gait/station normal, normal range of motion Psychiatric: mood/affect normal Medical Decision Making Diagnostic Impression: Primary Impression: Back pain Qualified Codes: M54.6 - Pain in thoracic spine ER Course Patient presents with back pain. Most likely musculoskeletal. She is not hypoxic or tachypneic to indicate PE. No other risk factor for PE or DVT. No evidence of any infection. Will discharge home. Last Vital Signs Date Time Temp Pulse Resp B/P (MAP) Pulse Ox O2 Delivery O2 Flow Rate FiO2 12/10/18 20:40 98.6 18 111/70 97 Room Air 12/10/18 20:30 78 Status: improved Disposition: HOME, SELF-CARE Condition: Stable Scripts Ibuprofen* (MOTRIN*) 600 Mg Tablet 600 MG ORAL THREE TIMES A DAY, #30 TAB 0 Refills Prov: Maykel Nascimento MD 12/10/18 Patient Instructions: Back Pain, Adult Additional Instructions: Follow up with your doctor in 7 days. Return if worse. Maykel Nascimento MD Dec 10, 2018 21:47
[2018-12-10 21:55] VITALS: BP 111/70
--- NOTE | 2018-12-10 21:55 | NUR ---
ED Nurse Note: Pt cleared by health care Provider for discharge. DC instructions/prescription was given and explained to pt and verbalized understanding of teachings. All medical deviecs such as ID band removed. Pt is AAO x4, ambulatory and left with all personal belongings.
== END 2018-12-10 21:50 | disposition home or self-care (01) ==
LOC: EMR 21:04
DX: M54.6 Pain in thoracic spine (principal); E11.9 Type 2 diabetes mellitus without complications; E78.00 Pure hypercholesterolemia, unspecified
CPT/HCPCS: 81003; Z7502; 99283

== ENCOUNTER 2019-02-16 11:31 | Emergency (ER) | payer MEDICAID ==
[~2019-02-16] VITALS: Ht 149.9 cm; Wt 68.5 kg
[~2019-02-16 11:31] MED LIST changes: +LACTULOSE20 GM/301 ORAL
[2019-02-16 11:45] VITALS: BP 106/71
[2019-02-16 12:59] LABS: APPEARANCE,URINE CLEAR; BILIRUBIN, URINE NEGATIVE (NEGATIVE); COLOR,URINE PALE YELLOW; GLUCOSE, URINE (UA) NEGATIVE (NEGATIVE); KETONES,URINE NEGATIVE (NEGATIVE); LEUKOCYTE ESTERASE ,URINE NEGATIVE (NEGATIVE); NITRITE,URINE NEGATIVE (NEGATIVE); PH,URINE 5 (4.5-8.0); PROTEIN,URINE NEGATIVE (NEGATIVE); UROBILINOGEN,URINE NORMAL MG/DL (0.0-1.0)
--- NOTE | 2019-02-16 13:00 | Emergency Room Report ---
History of Present Illness General Chief Complaint: Back Pain-No Injury Source: Patient Present Illness HPI Patient is a maxime. Patient presents to the emergency department today complaint acute onset of lower back pain for the last few days. She states that is worse with movement paraspinal region near the area of the hips. She denies any trauma. Denies any definite exacerbating event. She denies dysuria urinary frequency. She states that she had back pain in the past but never had a prior work-up. She is requesting x-ray. No chest pain or shortness of breath. Denies any vaginal bleeding. No other complaints are noted. Symptoms noted to be moderate. Denies numbness or tingling. Denies any difficulty with incontinence. No other modifying factors. No other associated signs and symptoms. No other complaints were noted. Allergies: Coded Allergies: No Known Allergies (Unverified , 01/15/18) Patient History Past Medical History: none Past Surgical History: none Pertinent Family History: none Social History: Denies: smoking, alcohol use, drug use Reviewed Nursing Documentation: PMH: Agreed; PSxH: Agreed Nursing Documentation-PMH Hx Cardiac Problems: Yes - high cholesterol Hx Diabetes: Yes Review of Systems All Other Systems: negative except mentioned in HPI Physical Exam Vital Signs Date Time Temp Pulse Resp B/P (MAP) Pulse Ox O2 Delivery O2 Flow Rate FiO2 02/16/19 11:45 98.1 83 19 106/71 96 Sp02 EP Interpretation: reviewed, normal General Appearance: normal inspection, well appearing, no apparent distress, alert Head: atraumatic Eyes: bilateral eye normal inspection ENT: normal ENT inspection, hearing grossly normal, normal voice Neck: normal inspection, full range of motion, supple, no bony tend Respiratory: normal inspection, lungs clear, normal breath sounds, no respiratory distress, no retraction, no wheezing Cardiovascular #1: regular rate, rhythm, no edema Gastrointestinal: normal inspection, normal bowel sounds, non tender, soft, no guarding, no hernia Genitourinary: no CVA tenderness Musculoskeletal: normal inspection, back normal, normal range of motion, other - Paraspinal tenderness to palpation bilateral lower back. Neurologic: alert, responsive, speech normal, normal inspection Psychiatric: normal inspection, judgement/insight normal, mood/affect normal Skin: no rash Medical Decision Making Diagnostic Impression: Primary Impression: Back pain ER Course Patient presents emergency department today complaint severe lower back pain. Differential considerations include factors location versus strain. Given patient presentation apparent that patient likely strained her back. However given the persistence pain x-rays were obtained which were negative. Urine testing was also negative. Therefore I feel the patient be discharged home. Patient was given prescription for anti-inflammatory and muscle relaxants. Patient is advised to follow up with primary doctor in 2-3 days and return the emergency room for any worsening symptoms and as needed. Labs Test 02/16/19 12:15 Urine Color Pale yellow Urine Appearance Clear Urine pH 5 (4.5-8.0) Urine Specific [place] 1.005 (1.005-1.035) Urine Protein Negative (NEGATIVE) Urine Glucose (UA) Negative (NEGATIVE) Urine Ketones Negative (NEGATIVE) Urine Blood Negative (NEGATIVE) Urine Nitrite Negative (NEGATIVE) Urine Bilirubin Negative (NEGATIVE) Urine Urobilinogen Normal MG/DL (0.0-1.0) Urine Leukocyte Esterase Negative (NEGATIVE) Urine HCG, Qualitative Negative (NEGATIVE) Other X-Ray Diagnostic Results Other X-Ray Diagnostic Results : X-Ray ordered: Lumbar spine # of Views/Limited Vs Complete: 2 View Indication: Pain EP Interpretation: Yes Interpretation: no dislocation, no soft tissue swelling, no fractures Impression: No acute disease Electronically Signed by: Electronically signed by Cheo Tinoco MD Last Vital Signs Date Time Temp Pulse Resp B/P (MAP) Pulse Ox O2 Delivery O2 Flow Rate FiO2 02/16/19 11:45 98.1 83 19 106/71 (83) 96 Status: improved Disposition: HOME, SELF-CARE Condition: Stable Scripts Cyclobenzaprine Hcl* (FLEXERIL*) 10 Mg Tablet 10 MG ORAL THREE TIMES A DAY, #20 TAB Prov: Cheo Tinoco MD 02/16/19 Ibuprofen* (MOTRIN*) 600 Mg Tablet 600 MG ORAL Q8H PRN for For Pain, #30 TAB 0 Refills Prov: Cheo Tinoco MD 02/16/19 Referrals: NON PHYSICIAN (PCP) Cheo Tinoco MD Feb 16, 2019 13:00
[2019-02-16] MEDS ORDERED: IBUPROFEN600 MG ORAL (13:25)
[2019-02-16] MEDS ORDERED: CYCLOBENZAPRINE10 MG ORAL (13:25)
[2019-02-16 13:33] VITALS: BP 108/79
--- NOTE | 2019-02-16 15:00 | Diagnostic Imaging Report ---
. Indication: Pain and trauma Technique: 3 views of the lumbar spine Comparison: None Findings: Vertebral body heights are preserved. Disc spaces are preserved. Bones are osteoporotic. Pedicles are intact. Sacral arches are preserved. Sacroiliac joint spaces are preserved. There are bilateral endoluminal fallopian tubal occlusion devices noted Impression: No acute process
== END 2019-02-16 13:34 | disposition home or self-care (01) ==
LOC: EMR 12:20
DX: M54.5 Low back pain (principal); E78.00 Pure hypercholesterolemia, unspecified; E11.9 Type 2 diabetes mellitus without complications
CPT/HCPCS: 72020; 81003; 81025; Z7502; 99283

== ENCOUNTER 2019-10-12 01:27 | Emergency (ER) | payer MEDICAID ==
[~2019-10-12] VITALS: Ht 160 cm; Wt 85.3 kg
[~2019-10-12 01:27] MED LIST changes: +CYCLOBENZAPRINE10 MG ORAL
[2019-10-12] MEDS ORDERED: DICLOFENAC SOD100 GM TP (01:50)
[2019-10-12] MEDS ORDERED: HYDROcodone/Acetamin 5/325 tab ORAL ONE (02:15)
[2019-10-12] MEDS ORDERED: IBUPROFEN600 M1 ORAL (02:28)
[2019-10-12] MEDS ORDERED: HYDROCODON-ACE1 EA15 ORAL (02:28)
--- NOTE | 2019-10-12 02:28 | Emergency Room Report ---
History of Present Illness General Chief Complaint: Pain Source: Patient Present Illness HPI This 49-year-old female with no significant past medical history. She presents with chief complaint of neck pain. Is been ongoing for about 3 weeks. Worse when she lay down. Worse when she moves her neck. She felt a burning sensation the back of her neck when she lays back. [place] the pain rating up around her neck area to her head. Also with pain down to her right arm elbow area. Pain is 7 out of 10. Is got worse tonight. No trauma. No fever or chills. No focal deficit. He denies any other complaint. Allergies: Coded Allergies: No Known Allergies (Unverified , 01/15/18) COVID-19 Screening Contact w/high risk pt: No Experienced COVID-19 symptoms?: No COVID-19 Testing performed TEACHER RESOURCE: No Patient History Past Medical History: see triage record, old chart reviewed Past Surgical History: none Pertinent Family History: none Social History: Denies: smoking Now: No Immunizations: other Reviewed Nursing Documentation: PMH: Agreed; PSxH: Agreed Nursing Documentation-PMH Hx Cardiac Problems: Yes - high cholesterol Hx Diabetes: Yes Review of Systems Eye: Denies: eye pain, blurred vision ENT: Denies: ear pain, nose congestion, throat swelling Respiratory: Denies: cough, shortness of breath Cardiovascular: Denies: chest pain, palpitations Gastrointestinal: Denies: abdominal pain, diarrhea, nausea, vomiting Musculoskeletal: Denies: back pain, joint pain Skin: Denies: rash Neurological: Denies: headache, numbness Endocrine: Denies: increased thirst, increased urine Hematologic/Lymphatic: Denies: easy bruising All Other Systems: negative except mentioned in HPI Physical Exam Vital Signs Date Time Temp Pulse Resp B/P (MAP) Pulse Ox O2 Delivery O2 Flow Rate FiO2 10/12/19 01:45 97.5 75 16 127/85 (99) 98 Room Air Vitals normal Sp02 EP Interpretation: reviewed, normal General Appearance: well appearing, no apparent distress, alert Head: normocephalic, atraumatic Eyes: bilateral eye PERRL, bilateral eye EOMI ENT: hearing grossly normal, normal pharynx Neck: full range of motion, supple, no meningismus Respiratory: chest non-tender, lungs clear, normal breath sounds Cardiovascular #1: regular rate, rhythm, no murmur Gastrointestinal: normal bowel sounds, non tender, no mass, no organomegaly, no bruit, non-distended Musculoskeletal: back normal, normal range of motion, gait/station normal Psychiatric: mood/affect normal Medical Decision Making Diagnostic Impression: Primary Impression: Cervical radiculopathy, acute ER Course Patient with symptom consistent with cervical radiculopathy. No evidence of cauda equina syndrome, spinal epidural abscess or neoplastic process. No need for x-rays. She may benefit from MRI as an outpatient. Last Vital Signs Date Time Temp Pulse Resp B/P (MAP) Pulse Ox O2 Delivery O2 Flow Rate FiO2 10/12/19 01:45 97.5 75 16 127/85 (99) 98 Room Air Status: improved Disposition: HOME, SELF-CARE Condition: Stable Scripts Ibuprofen* (MOTRIN*) 600 Mg Tablet 600 MG ORAL Q6H PRN for For Pain, #30 TAB 0 Refills Prov: Maykel Nascimento MD 10/12/19 Hydrocodone/Acetaminophen 5-325* (HYDROCODONE/ACETAMINOPHEN 5-325*) 1 Each Tablet 1 TAB ORAL Q6H PRN for For Pain, #20 TAB 0 Refills Prov: Maykel Nascimento MD 10/12/19 [facility],REFERRING (PCP) Additional Instructions: Follow-up with your doctor in 7 days. You may need an MRI of your neck. Return if symptoms worsen. Maykel Nascimento MD Oct 12, 2019 02:28
[2019-10-12 02:35] VITALS: BP 122/80
== END 2019-10-12 02:35 | disposition home or self-care (01) ==
LOC: EMR 01:58
DX: M54.12 Radiculopathy, cervical region (principal); E11.9 Type 2 diabetes mellitus without complications; E78.00 Pure hypercholesterolemia, unspecified
CPT/HCPCS: 99282